=== PATIENT | male | born 1955 | race Caucasian/White ===

== ENCOUNTER 2023-12-27 07:55 | Day surgery (SDC) | payer OTHER ==
--- NOTE | 2023-12-26 09:26 | RAD REPORT ---
EXAMINATION: TWO VIEW CHEST XR CLINICAL INDICATION: pre op for day surgery TECHNIQUE: 2 views of the chest was performed. COMPARISON: No prior exam. FINDINGS: The lungs are well inflated and clear. The heart is normal in size. No displaced fractures evident. IMPRESSION: No acute or significant abnormalities. The USPSTF recommends annual screening for lung cancer with low-dose computed tomography (LDCT) in ad ults aged 50 to 80 years who have a 20 pack-year smoking history and currently smoke or have quit within the past 15 years. Screening should be discontinued once a person has not smoked for 15 years or develops a health problem that substantially limits life expectancy or the ability or willingness to have curative lung surgery.
[2023-12-26 09:57] LABS: Absolute Eosinophils 0.1 K/uL (0-0.5); Absolute Lymphocytes (CBC) 1.6 K/uL (0.7-4.9); Absolute Monocytes 0.3 K/uL (0.1-1.3); Absolute Neutrophil 4.3 K/uL (1.8-8.0); Basophils % 0.7 % (0-1.3); Eosinophils % 1.6 % (0-4.4); Hematocrit 50.7 % (39.6-49.0); Hemoglobin 17.2 g/dL (13.6-17.9); Lymphocytes % 25.3 % (15.3-44.8); MCH 32.2 pg (27.0-35.0); MCHC 33.8 g/dL (32.0-36.0); MCV 95.1 fL (80-100); MPV 7.9 fL (7.6-11.3); Monocytes % 4.4 % (3.3-12.3); Platelets 244 thou/uL (152-406); RBC Red Blood Cell Count 5.33 M/uL (4.33-5.43); Red Cell Distribution Width 13.7 % (12.1-15.2)
[2023-12-26 10:05] LABS: PT Prothrombin Time 11.7 SECONDS (9.4-12.5); PTT, Activated Partial Thromb 29.5 SECONDS (24.3-36.9); Protime INR 1.05
[2023-12-26 10:10] LABS: Anion Gap 6.9 mEq/L (5.0-15.0); Potassium 3.9 mEq/L (3.5-5.1)
--- NOTE | 2023-12-26 11:56 | EKG ---
Test Date: 2023-12-26 Test Time: 10:02:44 Insect Control Inspector: OLMAN MEASUREMENT RESULTS: Intervals: Rate: 50 RI: 146 QRSD: 94 QT: 442 QTc: 402 Floyd: P: 61 RI: 146 QRS: 56 T: 53 INTERPRETIVE STATEMENTS: Sinus bradycardia Otherwise normal ECG No previous ECG available for comparison Electronically Signed On 12-26-23 11:55:38 HEAD WOOD GRINDER by Cedric Frederick
[2023-12-27] MEDS: Ringers Lactate 1,000 ML IV ONE (08:22)
[2023-12-27] MEDS ORDERED: dexAMETHasone 10 MG/ML VIAL ONE (08:57)
[2023-12-27] MEDS ORDERED: FENTANYL CITR 100 MCG/2 ML ONE (08:58)
[2023-12-27] MEDS ORDERED: MIDAZOLAM HCL 2 MG/2 ML INJ ONE (08:58)
[2023-12-27] MEDS ORDERED: ROPLVACAINE HCL 20 ML ONE (08:58)
[2023-12-27] MEDS ORDERED: LIDOCAINE 2% W/EPI 1:200,000 MPF 20 ML VIAL IM ONE (09:01)
[2023-12-27] MEDS ORDERED: LIDOCAINE 2% MPF 5 ML VIAL ONE (09:45)
[2023-12-27] MEDS ORDERED: propofoL 200 MG/20 ML VIAL IV ONE (09:45)
[2023-12-27] MEDS: CEFAZOLIN SODIUM 1 GM/VIAL ONE (10:25)
[2023-12-27] MEDS ORDERED: ONDANSETRON 4 MG/2 ML VIAL ONE (11:11)
--- NOTE | 2023-12-27 11:55 | P.BOP ---
Preoperative diagnosis: left quadriceps tendon rupture Postoperative diagnosis: Same Primary procedure: Left quadriceps tendon repair Wood Craftsman: NONE,NONE Estimated blood loss: 10 cc Specimen: None Findings: See dictation Anesthesia: General Complications: None Implants: None Fluids & blood products: Per anesthesia record Transferred to: Recovery Room Condition: Good
[2023-12-27 12:41] VITALS: O2SAT 98
--- NOTE | 2023-12-27 12:55 | RAD REPORT ---
Exam:Knee Left 2 View HISTORY: Left knee surgery FINDINGS: Post surgical changes involve the knee. Small avulsion fracture superior aspect of the patella. No dislocation
[2023-12-27 13:04] VITALS: BP 144/85; TEMP 98
== END 2023-12-27 13:32 | disposition home or self-care (01) ==
LOC: OR 07:55
PROVIDERS: ATTEND Orthopaedic Surgery Sports Medicine
PROC: 0YQD0ZZ Repair Left Upper Leg, Open Approach (ICD-10-PCS; principal; 2023-12-27 10:00)
DX: S76.112A Strain of left quadriceps muscle, fascia and tendon, initial encounter (principal)
CPT/HCPCS: 93005; 85025; 80048; 36415; 85610; 85730; 71046; 73560; 27385 ×2; J2704; J2003; J2250; J3010; J1100; J2405; J7120; J0690